=== PATIENT | female | born 1960 | race Two or more races ===

== ENCOUNTER 2018-10-15 12:57 | Day surgery (SDC) | payer BC, OTHER ==
[2018-10-15] MEDS ORDERED: DIAZEPAM 5 MG TAB PO ONE (13:01)
[2018-10-15] MEDS ORDERED: NS 1,000 ML IV ONE (13:01)
[2018-10-15] MEDS ORDERED: ceFAZolin 2 GM/DEXTROSE 100 ML IV ONE (13:01)
[2018-10-15] MEDS ORDERED: diphenhydrAMINE 25 MG CAP PO ONE (13:01)
[2018-10-15] MEDS ORDERED: BACITRACIN IRRIGATION/NS 50,000 UNITS/1,000 ML BTL IRR ONE (13:01)
[2018-10-15 13:41] LABS: PLATELET COUNT 265 10^3/uL (150-400)
[2018-10-15 13:52] LABS: INR 1.02 (0.83-1.16); PROTIME(PATIENT) 13.6 SEC (12.0-15.0)
--- NOTE | 2018-10-15 14:14 | PDHPUP ---
History & Physical Update H&P update statement: This history and physical update is based on an assessment of the patient which was completed after admission or registration (within 24 hours), but prior to the surgery/procedure. H&P update: H&P reviewed & patient examined, no change in patient's condition since H&P completed
--- NOTE | 2018-10-15 14:14 | PDPROPOC ---
Sedation Plan of Care Sedation Plan of Care: vital signs stable, mental status noted, patient educated of risks, benefits, alternatives, patient can tolerate sedation ASA Classification: ASA 1 Planned drugs: fentanyl, midazolam Mallampati Score: Class 1 Mallampati Reference Image: Patient passed 3-3-2 rule?: Yes
[2018-10-15] MEDS ORDERED: LIDOCAINE 1% 300 MG/30 ML SDV ONE (14:50)
[2018-10-15] MEDS ORDERED: BUPIVACAINE 0.5% 30 ML SDV ONE (14:51)
[2018-10-15] MEDS ORDERED: MIDAZOLAM 2 MG/2 ML VIAL ONE ×2 (14:51→15:48)
[2018-10-15] MEDS ORDERED: LIDO/EPI 1% **for epidural** 30 ML SDV ONE (14:51)
[2018-10-15] MEDS ORDERED: fentaNYL 100 MCG/2 ML INJ ONE (14:51)
--- NOTE | 2018-10-15 19:46 | CPEKG ---
Test Reason : OPEN Blood Pressure : / mmHG Vent. Rate : 057 BPM Atrial Rate : 057 BPM P-R Int : 170 ms QRS Dur : 089 ms QT Int : 454 ms P-R-T Axes : 059 064 041 degrees QTc Int : 442 ms Sinus rhythm Confirmed by Malik Meneses ([id number]) on 10/15/2018 7:46:12 PM Referred By: Timothy Alexis Confirmed By:Malik Meneses
--- NOTE | 2018-10-15 19:47 | CPEKG ---
Test Reason : OPEN Blood Pressure : / mmHG Vent. Rate : 067 BPM Atrial Rate : 066 BPM P-R Int : 148 ms QRS Dur : 088 ms QT Int : 417 ms P-R-T Axes : 068 057 044 degrees QTc Int : 441 ms Sinus rhythm Confirmed by Malik Meneses ([id number]) on 10/15/2018 7:46:45 PM Referred By: Timothy Alexis Confirmed By:Malik Meneses
--- NOTE | 2018-10-15 23:24 | CPIP ---
[f rep st] INVASIVE CARDIAC PROCEDURE DATE OF PROCEDURE: 10/08/2018 INDICATIONS: The patient is 58 years old and has a history of sick sinus syndrome. She has had a pa cemaker in place since 1993. Her current generator was implanted in January of 2003. The device is at elective replacement indicators. The right atrial lead is known to be nonfunctional with no capture. PROCEDURE: Pacemaker generator change. TECHNIQUE: Following informed consent, in the fasting state and after the administration of prophyla ctic antibiotics, the patient was brought to the cardiac catheterization laboratory. The left chest was prepped and draped in the usual sterile fashion. 2% lidocaine was infiltrated in the skin overly ing the existing pacemaker. A 4 cm incision was made which was carried down to the pacemaker capsule by using blunt dissection. The pacemaker capsule was opened sharply. The existing device was then removed from the pocket. Both leads both leads were disconnected from the header. Each individual l ead was tested. The pocket was irrigated. The new device was brought to the field and both leads we re connected to the header according to chemical engineering intern guidelines. The device and the redundant portio ns of both leads were then placed back in the pocket. The pocket was closed initially with 2 layers of interrupted suture using 2-0 and 3-0 Vicryl and finally 3-0 Vicryl for the skin. Steri-Strips and a dry dressing were applied. DEVICE INFORMATION: The newly implanted device is a Medtronic model number W1DR01, serial number [id number]. The existing leads were implanted June 04, 1994. The right atrial lead is a Medtronic 45 24, 45 cm lead, serial number [id number]. There was no capture or sensing. The right ventricular le ad is a Medtronic 5024M, 52 cm lead, serial number [id number]. Sensed R waves were 4.9 mV with a armaan d impedance of 361 ohms and a capture threshold of 1.5 V at 0.4 msec. COMPLICATIONS: None. DISPOSITION: The patient be recovered in the CVC and discharged home later today. /[id number]/MODL
== END 2018-10-15 17:48 | disposition home or self-care (01) ==
LOC: FCATH 12:57
PROVIDERS: ATTEND Internal Medicine Cardiovascular Disease
DX: Z45.018 Encounter for adjustment and management of other part of cardiac pacemaker (principal); I49.5 Sick sinus syndrome
CPT/HCPCS: C1785; J0690; J1200; J2250; J3010